=== PATIENT | female | born 1930 | race Caucasian/White ===

== ENCOUNTER → 2018-07-25 | Outpatient (CLI) | payer OTHER ==
[2018-07-25 11:54] LABS: Basophils # (auto) 0 uL; Basophils % (auto) 0.6 % (0.0-2.0); Eosinophils # (auto) 0.1 uL; Eosinophils % (auto) 0.7 % (0.0-7.0); Hematocrit 44.7 % (36.0-46.0); Lymphocytes # (auto) 1.4 uL; Lymphocytes % (auto) 19.1 % (10.0-50.0); Mean Corpuscular Hemoglobin 32.1 pg (28.0-32.0); Mean Corpuscular Hgb Conc. 33.5 g/dL (32.0-36.0); Mean Corpuscular Volume 95.8 fL (80.0-100.0); Monocytes # (auto) 0.6 uL; Monocytes % (auto) 8.2 % (0.0-12.0); Neutrophils # (auto) 5.1 uL; Neutrophils % (auto) 71.4 % (37.0-80.0); Platelet Count (auto) 266 10^3/uL (140-450); Red Blood Cells 4.67 10^6/uL (4.0-5.20); Red Cell Distribution Width 13.1 % (11.8-14.3); White Blood Cell 7.2 10^3/uL (4.4-10.8)
[2018-07-25 12:35] LABS: Albumin 4.2 g/dL (3.4-5.0); BUN/Creatinine Ratio 24.5; Calcium 9.4 mg/dL (8.5-10.1); Potassium 4.5 mmol/L (3.5-5.1); Uric Acid 3.8 mg/dL (2.6-6.0)
[2018-07-25 12:38] LABS: Total Protein 7.5 g/dL (6.4-8.2)
== END | disposition home or self-care (01) ==
LOC: LAB 11:13
PROVIDERS: ATTEND Internal Medicine
DX: I12.9 Hypertensive chronic kidney disease with stage 1 through stage 4 chronic kidney disease, or unspecified chronic kidney disease (principal); N18.3 Chronic kidney disease, stage 3 (moderate)
CPT/HCPCS: 36415; 80053; 84550; 85025

== ENCOUNTER 2019-01-05 20:25 | Emergency (ER) | payer OTHER ==
[~2019-01-05] VITALS: Ht 160 cm; Wt 61.2 kg
[2019-01-06 01:30] LABS: Basophils # (auto) 0 uL; Basophils % (auto) 0.2 % (0.0-2.0); Eosinophils # (auto) 0 uL; Eosinophils % (auto) 0.1 % (0.0-7.0); Hematocrit 44.1 % (36.0-46.0); Hemoglobin 14.9 g/dL (12.2-16.2); Lymphocytes # (auto) 0.5 uL; Lymphocytes % (auto) 3.5 % (10.0-50.0); Mean Corpuscular Hemoglobin 31.2 pg (28.0-32.0); Mean Corpuscular Hgb Conc. 33.8 g/dL (32.0-36.0); Mean Corpuscular Volume 92.5 fL (80.0-100.0); Monocytes # (auto) 0.9 uL; Neutrophils # (auto) 13.9 uL; Neutrophils % (auto) 90.2 % (37.0-80.0); Platelet Count (auto) 224 10^3/uL (140-450); Red Blood Cells 4.76 10^6/uL (4.0-5.20); White Blood Cell 15.4 10^3/uL (4.4-10.8)
[2019-01-06 01:39] LABS: Albumin 4.1 g/dL (3.4-5.0); BUN/Creatinine Ratio 35.9; Calcium 9.3 mg/dL (8.5-10.1); Potassium 4.1 mmol/L (3.5-5.1)
[2019-01-06 01:42] LABS: Bilirubin, Total 1.1 mg/dL (0.2-1.0); Total Protein 7.2 g/dL (6.4-8.2)
[2019-01-06 01:44] LABS: INR 0.98 (0.9-1.15); Partial Thromboplastin Time 28.5 sec (23.78-33.04); Prothrombin Time 10.5 sec (9.27-12.13)
[2019-01-06] MEDS ORDERED: SODIUM CHLORIDE 0.9% 1,000 ML IV ONE (03:00)
[2019-01-06 03:20] LABS: Urine Bacteria NONE SEEN /hpf (None Seen); Urine Blood Negative /uL (Negative); Urine Specific Gravity 1.022 (1.001-1.035); Urine WBC 1 /hpf (0 - 5)
[2019-01-06 05:20] VITALS: BP 130/60
== END 2019-01-06 05:11 | disposition home or self-care (01) ==
LOC: ER 20:25 → EDBD 20:25 → ER 01-06 05:11
DX: R25.1 Tremor, unspecified (principal); I10 Essential (primary) hypertension; Z90.710 Acquired absence of both cervix and uterus; Z90.89 Acquired absence of other organs; Z88.2 Allergy status to sulfonamides
CPT/HCPCS: 36415; 71045; 80053; 81001; 83605; 83880; 84484; 85025; 85610; 85730; 93005; 94761; 99284; J7030

== ENCOUNTER 2019-09-08 14:01 | Inpatient (IN) | payer OTHER ==
[~2019-09-08] VITALS: Ht 162.6 cm; Wt 63.3 kg
[2019-09-08] MEDS ORDERED: HYDROmorphone HCL 2 MG/ML VL IV ONE (14:45)
[2019-09-08] MEDS ORDERED: ONDANSETRON HCL 4 MG/2 ML VIAL IV ONE (14:45)
[2019-09-08] MEDS ORDERED: NITROGLYCERIN 0.4 MG SL TAB SL PRN (16:45)
[2019-09-08] MEDS ORDERED: MORPHINE SULF INJ 2 MG/ML SYRINGE 1ML IV PRN (16:45)
[2019-09-08] MEDS ORDERED: ONDANSETRON HCL 4 MG/2 ML VIAL IV PRN (17:00)
[2019-09-08] MEDS ORDERED: LABETALOL HCL 5 MG/ML 4ML SYRINGE IV PRN (17:00)
[2019-09-08] MEDS: HYDROmorphone HCL 2 MG/ML VL IV PRN ×2 (17:08→22:13)
--- NOTE | 2019-09-08 18:15 | NUR ---
Telemetry admit from XENIA YODER admitted to Telemetry unit after SBAR received from HILLARY perkins. Patient oriented to JADEN GRAVES RN primary RN, unit, room, bed, and unit policies regarding patient care and visiting hours. Patient now on continuous telemetry monitoring, tele box # 75 and telemetry reading on arrival to unit is NSR 85bpm. Patient placed on bedside oxygen @ 2L n/c, weighed by bedscale and encouraged to call if they need something.Bed in lowest/locked position, bed rails up x2, call light within reach. All questions and concerns addressed, patient verbalized understanding.
--- NOTE | 2019-09-08 18:45 | NUR ---
Willis catheter insertion Patient assessed and determined to be in need of willis catheter. Order obtained from MD. Patient educated on catheter and reason for insertion. All questions answered. Willis catheter 16 guage Malay inserted with clean sterile technique. Patient tolerated well.
--- NOTE | 2019-09-08 19:42 | NUR ---
RECEIVED PT FROM DAY RN POC REVIEWED
--- NOTE | 2019-09-08 20:30 | NUR ---
PTS SPOUSE CALLED INFO GIVEN AFTER PASSWORD VERIFIED, STATED THAT HE WOULD VISIT PT IN AM, INQUIRED IF ORTHO CONSULT DONE, ALL QUESTIONS AND CONCERNS ADDRESSED
[2019-09-08 22:00] VITALS: BP 140/74
[2019-09-09] MEDS: HYDROmorphone HCL 2 MG/ML VL IV PRN ×5 (02:35→22:37)
--- NOTE | 2019-09-09 02:42 | NUR ---
AWOKE C/O HIP PAIN 05/04 MEDICATED ORDERED, MRSA SWAB SENT TO LAB
[2019-09-09 05:00] VITALS: BP 156/66
--- NOTE | 2019-09-09 06:06 | NUR ---
AWOKE REPOSITIONED C/O PAIN 05/04 IN HIP MEDICATED ORDERED
[2019-09-09 06:49] LABS: Basophils # (auto) 0 uL; Basophils % (auto) 0.1 % (0.0-2.0); Eosinophils # (auto) 0 uL; Eosinophils % (auto) 0.1 % (0.0-7.0); Hematocrit 35.4 % (36.0-46.0); Hemoglobin 12.3 g/dL (12.2-16.2); Lymphocytes # (auto) 0.7 uL; Lymphocytes % (auto) 7.6 % (10.0-50.0); Mean Corpuscular Hemoglobin 32.3 pg (28.0-32.0); Mean Corpuscular Hgb Conc. 34.7 g/dL (32.0-36.0); Mean Corpuscular Volume 93.1 fL (80.0-100.0); Monocytes % (auto) 10.2 % (0.0-12.0); Neutrophils # (auto) 8.1 uL; Nucleated Red Blood Cells % 0.1 %; Platelet Count (auto) 207 10^3/uL (140-450); Red Blood Cells 3.81 10^6/uL (4.0-5.20); Red Cell Distribution Width 13.2 % (11.8-14.3); White Blood Cell 9.8 10^3/uL (4.4-10.8)
[2019-09-09 07:01] LABS: INR 1.08 (0.9-1.15); Partial Thromboplastin Time 28.5 sec (23.64-32.05)
[2019-09-09 07:06] LABS: Potassium 4.6 mmol/L (3.5-5.1)
--- NOTE | 2019-09-09 07:06 | NUR ---
REPORT GIVEN TO AM NURSE POC REVIEWED
[2019-09-09 07:09] LABS: BUN/Creatinine Ratio 32.7
--- NOTE | 2019-09-09 07:30 | NUR ---
Opening Shift Note Assumed care of patient, awake and alert. No S/S of distress/SOB, or pain. Bed in lowest and locked position with side rails up x2 and call light within reach. Instructed on POC and to call for assist PRN, will continue to monitor for changes Q1hr and PRN.
[2019-09-09 08:02] VITALS: BP 128/63
[2019-09-09 09:00] VITALS: BP 128/63
[2019-09-09] MEDS: amLODIPine BESYLATE 5 MG TAB PO SCH (10:42)
--- NOTE | 2019-09-09 12:00 | NUR ---
WOUND CARE NOTE: IN TO SEE PATIENT AT THIS TIME FOR SKIN INTEGRITY. PATIENT ADMITTED TO [facility] WITH DIAGNOSIS OF LEFT HIP FRACTURE. PATIENT HAS CURRENT ROGELIO SCORE OF 10. PATIENT IS WOUND FREE AT THIS TIME, WITH PINK, BLANCHABLE BONY PROMINENCES NOTED. OPTIFOAM GENTLE SACRAL DRESSING APPLIED TO UPPER MEDIAL SACRUM PREVENTATIVE. REPOSITIONED TO SIDE-LYING POSITION WITH TWO PILLOWS FOR PROPER ALIGNMENT. RECOMMEND: FREQUENT TURN SCHEDULE Q 2 HOURS, PRN CONDITION PERMITS, WITH PRESSURE REDISTRIBUTION USING PILLOWS/WEDGES, BID/PRN APPLICATION WITH MOISTURE BARRIER CREAM, OPTIFOAM GENTLE SACRAL DRESSING PREVENTATIVE, [place]EPHANIA FOAM BOOTS NOTED TO BILATERAL FEET/HEELS, SKIN/WOUND CARE PLAN, DIETARY CONSULT FOR LOW ROGELIO, CONTINUED MONITORING BY WOUND CARE TEAM.
[2019-09-09 13:00] VITALS: BP 127/57
[2019-09-09 15:16] LABS: Urine Bacteria NONE SEEN /hpf (None Seen); Urine Blood 2+ /uL (Negative); Urine Mucus FEW (None Seen); Urine Specific Gravity 1.024 (1.001-1.035); Urine WBC 1 /hpf (0 - 5)
--- NOTE | 2019-09-09 15:55 | NUR ---
PT TAKEN TO PRE-OP.
[2019-09-09] MEDS ORDERED: LIDOCAINE 1% (LOCAL ANESTH.) PF 5ml SDV ONE (16:23)
[2019-09-09] MEDS ORDERED: SUCCINYLCHOLINE CHLORIDE 20 MG/ML 10ML VIAL IV ONE (16:24)
[2019-09-09] MEDS ORDERED: MIDAZOLAM HCL 1MG/1ML-2 ML VIAL ONE (16:33)
[2019-09-09] MEDS ORDERED: ETOMIDATE (2MG/ML) 20ML VIAL IV ONE (16:34)
[2019-09-09] MEDS ORDERED: ROCURONIUM 10MG/ML 10ML VIAL IV ONE (16:35)
[2019-09-09] MEDS ORDERED: ceFAZolin 1GM/50ML 50 ML IV ONE (16:37)
[2019-09-09] MEDS ORDERED: fentaNYL CITRATE 100 MCG/2 ML VL ONE (16:54)
[2019-09-09] MEDS ORDERED: METOCLOPRAMIDE HCL 5MG/ml INJ 2ml VIAL ONE (16:54)
[2019-09-09] MEDS ORDERED: SODIUM CHLORIDE LOCK 10 ML ONE (16:59)
[2019-09-09] MEDS ORDERED: ePHEDrine SULFATE 50 MG/ML AMP ONE (16:59)
[2019-09-09] MEDS ORDERED: NALOXONE HCL 0.4 MG/ML VIAL IV PRN (17:15)
[2019-09-09] MEDS ORDERED: ONDANSETRON HCL 4 MG/2 ML VIAL IV PRN (17:15)
[2019-09-09] MEDS ORDERED: HYDROmorphone HCL 2 MG/ML VL IV PRN ×2 (17:15)
[2019-09-09] MEDS ORDERED: GLYCOPYRROLATE 0.2 MG/ML 1ML VIAL ONE (17:41)
[2019-09-09] MEDS ORDERED: NEOSTIGMINE 1 MG/ML INJ (10mg/10ML VIAL) ONE (17:41)
--- NOTE | 2019-09-09 19:40 | NUR ---
Patient has arrived from PACU. The patient is resting comfortably in bed and denies any pain. Patient is on 2L NC. Family is present at bedside.
[2019-09-09] MEDS: ceFAZolin 1GM/50ML 50 ML IV SCH (22:19)
[2019-09-09 22:20] VITALS: BP 137/61
[2019-09-10] MEDS: HYDROmorphone HCL 2 MG/ML VL IV PRN ×4 (00:46→19:30)
--- NOTE | 2019-09-10 03:55 | NUR ---
Patient has requested to be moved to another room. The patient has been transferred to 293B.
[2019-09-10 05:08] VITALS: BP 135/58
[2019-09-10] MEDS: ceFAZolin 1GM/50ML 50 ML IV SCH ×2 (06:32→14:14)
[2019-09-10 07:52] LABS: Hematocrit 30.1 % (36.0-46.0); Hemoglobin 10.3 g/dL (12.2-16.2)
[2019-09-10 08:05] VITALS: BP 136/61
--- NOTE | 2019-09-10 08:41 | NUR ---
CALLED DR. ORTEGA CALLED AND SPOKE TO DR. ORTEGA. RN NOTIFIED MD THAT THE PATIENTS DRESSING IS COMPLETELY COVERED IN BLOOD. PER MD, HOLD ANY LOVENOX AND CHANGE DRESSING WITH STERILE JEFF. MD AWARE. NEW ORDERS RECEIVED, READ BACK AND VERIFIED.
--- NOTE | 2019-09-10 08:53 | NUR ---
DRESSING CHANGED SURGICAL SITE DRESSING TO THE LEFT HIP AND UPPER THIGH CHANGED WITH STERILE JEFF AND TAPE TO APPLY, PER DR. ORTEGA ORDERS.
[2019-09-10 09:02] VITALS: BP 136/61
[2019-09-10] MEDS: amLODIPine BESYLATE 5 MG TAB PO SCH (10:05)
[2019-09-10] MEDS ORDERED: FELO5TAB6 PO (10:11)
--- NOTE | 2019-09-10 11:29 | NUR ---
NUTRITION CONSULT/ASSESSMENT NOTES Please refer to link notes of nutrition screen form filed under the intervention section of the plan of care for further details. Est. Needs: 1400 kcal to 1700 kcal (25-30 kcal/kgBW), 57 gms to 68 gms pro (1.0-1.2 gms/kgBW). Will continue to monitor pertinent labs and reassess nutrient need prn Thank you for this consult. Addendum: 09/10/19 at [address] Amended: Links added.
[2019-09-10 13:00] VITALS: BP 122/54
--- NOTE | 2019-09-10 16:11 | NUR ---
Assessment Pt is an 88 yr old alert and oriented female. Pt lives with , Garrison, who is her emergency contact at [phone]. Prior to admit, pt ambulated with a rolater or a cane and was independent with ADL's. Pt came to hospital for hip surgery. Pt receives income and has an AD on file. Pt's Primary is Dr. Duncan. Pt's will transport home upon d/c. Pt is pending a PT evaluation. Upon evaluation, if pt meets criteria, pt would benefit from receiving services for PT and professor of nursing upon d/c. Addendum: 09/10/19 at 1615 by JAMES BLAKE Amended: Links added.
[2019-09-10 16:51] VITALS: BP 119/48
--- NOTE | 2019-09-10 19:25 | NUR ---
REPORT GIVEN TO ANDRES RNLIZET.
--- NOTE | 2019-09-10 19:25 | NUR ---
Opening Shift Note Assumed care of patient, awake and alert. No S/S of distress/SOB. The patient complains of left hip pain. Will treat with PRN pain medication. Instructed on POC and to call for assist PRN, will continue to monitor for changes Q1hr and PRN.
[2019-09-10 21:52] VITALS: BP 126/44
[2019-09-11] VITALS (8 sets, daily range): BP systolic 94–140; BP diastolic 47–59
--- NOTE | 2019-09-11 07:20 | NUR ---
Opening Shift Note Assumed care of patient, awake and alert. No S/S of distress/SOB or pain. Instructed on POC and to call for assist PRN, will continue to monitor for changes Q1hr and PRN.
[2019-09-11 07:33] LABS: Hematocrit 28.2 % (36.0-46.0); Hemoglobin 9.8 g/dL (12.2-16.2)
[2019-09-11 08:31] LABS: Free T3 2.11 pg/mL (2.3-4.2); Free T4 (Free Thyroxine) 1.41 ng/dL (0.89-1.76)
[2019-09-11] MEDS ORDERED: LEVOTHYROXINE SODIUM 25 MCG TAB PO ONE (09:00)
[2019-09-11] MEDS: HYDROmorphone HCL 2 MG/ML VL IV PRN ×3 (09:22→18:22)
[2019-09-11] MEDS: amLODIPine BESYLATE 5 MG TAB PO SCH (09:23)
[2019-09-11] MEDS: ENOXAPARIN SOD 40 MG/0.4 ML SYRINGE SC SCH (10:31)
--- NOTE | 2019-09-11 11:00 | NUR ---
Dressing change Left hip dressing removed and replaced per orders. Wound cleaned with wound cleanser and dressed with abd pads and medi tape. Dressing clean dry and intact. Patient tolerated well.
--- NOTE | 2019-09-11 15:09 | NUR ---
D/C Planning Per consult for home health physical therapy. Order was reviewed and approved by KENRICK Holliday. Order has been approved for physical therapy evaluation with [facility]. Faxed order to manage care Fax:) at 14:17. Contact [facility] Ph:) Fax:( [phone]) faxed medical records with authorization number [id number]. Per Stevo from [facility] order has been received and service to start within 48hrs upon d/c day. Informed HILLARY Catherine. Addendum: 09/11/19 at 1515 by ADI CASANOVA Amended: Links added.
--- NOTE | 2019-09-11 19:25 | NUR ---
Opening Shift Note Received report from john Catherine RN. Assumed care of patient, awake and alert. No S/S of distress/SOB but c/o pain to left hip. Will give pain medication as ordered. Instructed on POC and to call for assist PRN, will continue to monitor for changes Q1hr and PRN. Bed placed in lowest position, bed alarm turned on and call light within reach.
--- NOTE | 2019-09-11 20:00 | NUR ---
Dressing to left hip is clean, dry and intact.
[2019-09-12] VITALS (7 sets, daily range): BP systolic 109–133; BP diastolic 43–61
[2019-09-12] MEDS: HYDROmorphone HCL 2 MG/ML VL IV PRN ×3 (03:53→14:58)
[2019-09-12 05:44] LABS: Hematocrit 26.4 % (36.0-46.0)
[2019-09-12] MEDS: LEVOTHYROXINE SODIUM 25 MCG TAB PO SCH (06:32)
--- NOTE | 2019-09-12 06:34 | NUR ---
Patient is c/o back pain. Given pain medication as ordered. Patient is alert and oriented. Repositioned patient, patient states she feels a little better after pain medication was given. Will monitor.
[2019-09-12] MEDS: amLODIPine BESYLATE 5 MG TAB PO SCH (09:32)
[2019-09-12] MEDS: ENOXAPARIN SOD 40 MG/0.4 ML SYRINGE SC SCH (09:32)
[2019-09-12] MEDS: traMADol HCL 50 MG TAB PO PRN ×2 (12:54→21:38)
--- NOTE | 2019-09-12 19:25 | NUR ---
Opening Shift Note Received report from john Catherine RN. Assumed care of patient, awake and alert. No S/S of distress/SOB or c/o pain. Patient is doing some upper extremity exercises using elastic bands. Instructed on POC and to call for assist PRN, will continue to monitor for changes Q1hr and PRN. Bed placed in lowest position, bed alarm turned on and call light within reach.
--- NOTE | 2019-09-12 21:30 | NUR ---
ENCOURAGED PATIENT TO USE THE INCENTIVE SPIROMETER AND PATIENT DEMONSTRATED WELL.
--- NOTE | 2019-09-13 03:00 | NUR ---
IV insertion IV access obtained, via clean sterile technique by inserting 22 gauge catheter at left forearm after first attempt. IV secured properly. No trauma to site. Patient tolerated well.
--- NOTE | 2019-09-13 03:00 | NUR ---
IV removal after 72 hours IV to right forearm DC'd with sterile technique, catheter fully intact. Pressure dressing applied to site. Patient tolerated procedure well.
[2019-09-13 05:00] VITALS: BP 133/58
[2019-09-13] MEDS: LEVOTHYROXINE SODIUM 25 MCG TAB PO SCH (06:33)
[2019-09-13 07:22] LABS: Basophils # (auto) 0 uL; Basophils % (auto) 0.4 % (0.0-2.0); Eosinophils # (auto) 0.3 uL; Eosinophils % (auto) 3.1 % (0.0-7.0); Hematocrit 26.2 % (36.0-46.0); Hemoglobin 9.2 g/dL (12.2-16.2); Lymphocytes % (auto) 11.8 % (10.0-50.0); Mean Corpuscular Hemoglobin 32.5 pg (28.0-32.0); Mean Corpuscular Hgb Conc. 35.2 g/dL (32.0-36.0); Mean Corpuscular Volume 92.6 fL (80.0-100.0); Monocytes # (auto) 0.9 uL; Monocytes % (auto) 10.8 % (0.0-12.0); Neutrophils # (auto) 6.4 uL; Neutrophils % (auto) 73.9 % (37.0-80.0); Platelet Count (auto) 263 10^3/uL (140-450); Red Blood Cells 2.84 10^6/uL (4.0-5.20); Red Cell Distribution Width 12.8 % (11.8-14.3); White Blood Cell 8.7 10^3/uL (4.4-10.8)
[2019-09-13 07:44] LABS: Albumin 2.3 g/dL (3.4-5.0); BUN/Creatinine Ratio 39.5; Calcium 8.5 mg/dL (8.5-10.1); Magnesium 2.3 mg/dL (1.6-2.6); Potassium 4.3 mmol/L (3.5-5.1)
[2019-09-13 07:47] LABS: Bilirubin, Total 1.7 mg/dL (0.2-1.0); Total Protein 5.7 g/dL (6.4-8.2)
--- NOTE | 2019-09-13 08:00 | NUR ---
Opening Shift Note Assumed care of patient, awake and alert. No S/S of distress/SOB, 4/10 back pain and left hip pain. High risk for fall, bed alarm on and side rails up x2. Instructed on POC and to call for assist PRN, will continue to monitor for changes Q1hr and PRN.
[2019-09-13 09:00] VITALS: BP 136/59
[2019-09-13] MEDS: amLODIPine BESYLATE 5 MG TAB PO SCH (10:51)
[2019-09-13] MEDS: ENOXAPARIN SOD 40 MG/0.4 ML SYRINGE SC SCH (10:52)
--- NOTE | 2019-09-13 11:00 | NUR ---
Dr. Wallis at bedside, discussed plan of care to the patient and patient's family.
[2019-09-13] MEDS: traMADol HCL 50 MG TAB PO PRN ×3 (12:57→21:10)
[2019-09-13 13:00] VITALS: BP 130/56
--- NOTE | 2019-09-13 15:04 | NUR ---
Nutrition Follow-up Notes Wt.: 64.6 kg as of yesterday. Pt's with PT at bedside when rounded this morning. Pt's no signs of distress noted earlier, currently on Regular diet with inadequate PO intake aeb <50% ave. consumed meals (x4) in last 2.5 days d/t pt refused, per nursing. Followed up with RN re: RD's MD's approved recommendation. Est. Needs: 1400 kcal to 1700 kcal (25-30 kcal/kgBW), 57 gms to 68 gms pro (1.0-1.2 gms/kgBW). Will continue to monitor pertinent labs and reassess nutrient need prn Labs: Na 135 L, BUN 34 H, Tot radha 1.7 H, Tpro 5.7 L, Alb 2.3 L Skin: Juan Carlos scale 17, mod risk, pt's left hip incision per vocational rehabilitation specialist. Pls refer to latest water resources program director's notes for further details re: tx plans. GI: Pt's no bowel activity since 09/08/19 per vocational rehabilitation specialist. PES: Increased nutrient needs r/t acute/chronic medical condition aeb 104% IBW, BMI 21.5 kg/m2, decreased muscle mass, closed comminuted intertrochanteric fracture of left femur, s/p surgery, refusing meals. Altered nutrition related lab values r/t current/chronic medical condition aeb elev. BUN, hypocalcemia and hyperglycemia Will continue to monitor PO intake, skin status, pertinent labs and weight trend. F/u in 3 to 5 days. Rec.: 1.) Pls enter order for Ensure Enlive 1 carton TID, already e-signed approved by . 2.) If Albumin continues trending down, consider Prostat 1 pkt BID. 3.) Consider daily MVI with minerals and Asc acid 500 mgs BID. prn. 4.) Continue close supervision and feeding assistance prn during meals. 5.) Refer pt to RD for further nutrition education and weight monitoring upon discharge. 6.) Continue current plan of care.
[2019-09-13 17:00] VITALS: BP 126/58
--- NOTE | 2019-09-13 17:03 | NUR ---
Complained of 6/10 lower back and left hip pain. Medicated with Tramadol PPO as ordered. Continue care.
[2019-09-13] MEDS: Ensure Enlive Strawberry 8oz Bottle PO SCH (18:37)
[2019-09-13 20:00] VITALS: BP 133/56
--- NOTE | 2019-09-13 20:00 | NUR ---
Opening Shift Note Assumed care of patient, awake and alert. No S/S of distress/SOB or pain. Instructed on POC and to call for assist PRN, will continue to monitor for changes Q1hr and PRN. Call light in reach and bed in low position. Dressing to left hip is clean, dry and intact.
[2019-09-13 22:00] VITALS: BP 119/42
[2019-09-14 05:24] VITALS: BP 132/51
[2019-09-14] MEDS: LEVOTHYROXINE SODIUM 25 MCG TAB PO SCH (06:28)
--- NOTE | 2019-09-14 06:52 | NUR ---
Closing note: Patient resting comfortably in bed. She states she "feels really good this morning". No distress or pain noted.
--- NOTE | 2019-09-14 07:40 | NUR ---
OPENING NOTE ASSUMED CARE OF PT. ALERT AND ORIENTED. NO S/S OF SOB/DISTRESS. PT DENIES ANY PAIN. SAFETY PRECAUTIONS IN PLACE. BED SET TO LOWEST POSITION/LOCKED, BEDSIDE RAILS UP X2, CALL LIGHT WITHIN REACH. INSTRUCTED PT TO CALL FOR ASSISTANCE. UPDATED ON POC. PT VERBALIZED UNDERSTANDING. WILL CONTINUE TO MONITOR Q1HR AND PRN.
[2019-09-14] MEDS: Ensure Enlive Strawberry 8oz Bottle PO SCH ×3 (08:00→17:56)
[2019-09-14 08:59] VITALS: BP 122/50
[2019-09-14] MEDS: amLODIPine BESYLATE 5 MG TAB PO SCH (10:23)
[2019-09-14] MEDS: ENOXAPARIN SOD 40 MG/0.4 ML SYRINGE SC SCH (10:24)
[2019-09-14 12:34] VITALS: BP 120/47
[2019-09-14] MEDS: traMADol HCL 50 MG TAB PO PRN (16:34)
[2019-09-14 17:26] VITALS: BP 124/45
[2019-09-14 20:00] VITALS: BP 128/45
[2019-09-14 22:03] VITALS: BP 128/45
[2019-09-15] MEDS: traMADol HCL 50 MG TAB PO PRN ×2 (01:27→23:17)
[2019-09-15] MEDS: HYDROmorphone HCL 2 MG/ML VL IV PRN ×3 (03:59→20:41)
[2019-09-15 05:22] VITALS: BP 131/52
[2019-09-15] MEDS: LEVOTHYROXINE SODIUM 25 MCG TAB PO SCH (06:59)
--- NOTE | 2019-09-15 07:30 | NUR ---
Opening Shift Note RECEIVED REPORT FROM NOC RN. Assumed care of patient, awake and alert. No S/S of distress/SOB or pain. BED IN LOWEST, LOCKED POSITION WITH SIDERAILS UP x2 AND CALL LIGHT WITHIN REACH. Instructed on POC and to call for assist PRN, will continue to monitor for changes Q1hr and PRN.
[2019-09-15] MEDS: Ensure Enlive Strawberry 8oz Bottle PO SCH ×3 (08:00→17:58)
[2019-09-15 09:20] VITALS: BP 115/48
[2019-09-15] MEDS: amLODIPine BESYLATE 5 MG TAB PO SCH (10:14)
[2019-09-15] MEDS: ENOXAPARIN SOD 40 MG/0.4 ML SYRINGE SC SCH (10:14)
--- NOTE | 2019-09-15 12:29 | NUR ---
DR. RODRIGUES AT BEDSIDE. NEW ORDERS RECEIVED AND CARRIED OUT.
[2019-09-15 12:49] VITALS: BP 105/47
[2019-09-15 14:19] LABS: Hematocrit 26.7 % (36.0-46.0)
[2019-09-15 17:08] VITALS: BP 111/48
--- NOTE | 2019-09-15 19:30 | NUR ---
Opening Shift Note Assumed care of patient, awake and alert x4. No S/S of distress/SOB or pain. Instructed on POC and to call for assistance PRN, will continue to monitor for changes Q1hr and PRN.
[2019-09-15 20:00] VITALS: BP 120/57
--- NOTE | 2019-09-15 20:45 | NUR ---
Pain Pt medicated for c/o 4/10 back pain, states tramadol does not work for her. Pt declined repositioning states she is comfortable like that does not want to turn for full skin assessment, educated on pressure ulcer prevention. Call light within reach, will continue to monitor, SCDs on bilaterally, Razo draining to gravity
[2019-09-15 22:00] VITALS: BP 120/57
--- NOTE | 2019-09-15 23:21 | NUR ---
Pain Pt alert x4, medicated with tramadol for c/o back pain 02/01. pt declined repositioning, sitting up semi fowlers with pillow to left side at this time. Call light within reach
[2019-09-16] MEDS: HYDROmorphone HCL 2 MG/ML VL IV PRN (02:26)
[2019-09-16 05:08] VITALS: BP 129/59
[2019-09-16] MEDS: traMADol HCL 50 MG TAB PO PRN ×2 (06:10→15:36)
[2019-09-16] MEDS: LEVOTHYROXINE SODIUM 25 MCG TAB PO SCH (06:10)
[2019-09-16 08:00] VITALS: BP 113/43
--- NOTE | 2019-09-16 08:00 | NUR ---
Opening Shift Note Assumed care of patient, awake and alert sitting up in bed. No S/S of distress/SOB or pain. [place] boots placed bilaterally. Instructed on POC and to call for assist PRN, call light within reach and bed in locked and lowest position. Will continue to monitor for changes Q1hr and PRN.
[2019-09-16] MEDS: Ensure Enlive Strawberry 8oz Bottle PO SCH ×2 (08:46→12:00)
[2019-09-16 09:00] VITALS: BP 113/43
[2019-09-16] MEDS: amLODIPine BESYLATE 5 MG TAB PO SCH (09:57)
[2019-09-16] MEDS: ENOXAPARIN SOD 40 MG/0.4 ML SYRINGE SC SCH (09:57)
--- NOTE | 2019-09-16 11:50 | NUR ---
Dr. Wallis bedside with patient and family discussing plan of care.
--- NOTE | 2019-09-16 11:57 | NUR ---
Nutrition Follow-up Notes Wt.: 63.3 kg Pt's sleeping with no family by bedside when rounded this morning. Pt's no signs of distress noted earlier, currently on Regular diet with adequate PO of 75% x 4 per RN doc along with ensure enlive 1 carton tid Est. Needs: 1400 kcal to 1700 kcal (25-30 kcal/kgBW), 57 gms to 68 gms pro (1.0-1.2 gms/kgBW). Will continue to monitor pertinent labs and reassess nutrient need prn Labs: No new labs today 09/13: Na 135 L, BUN 34 H, Tot radha 1.7 H, Tpro 5.7 L, Alb 2.3 L Skin: Juan Carlos scale 20, mod risk, pt's left hip incision per passenger tire builder. Pls refer to latest shank boner's notes for further details re: tx plans. GI: Pt's no bowel activity since 09/08/19 constipated per passenger tire builder. PES: Increased nutrient needs r/t acute/chronic medical condition aeb 104% IBW, BMI 21.5 kg/m2, decreased muscle mass, closed comminuted intertrochanteric fracture of left femur, s/p surgery, refusing meals. Altered nutrition related lab values r/t current/chronic medical condition aeb elev. BUN, hypocalcemia and hyperglycemia Will continue to monitor PO intake, skin status, pertinent labs and weight trend. F/u in 3 to 5 days. Rec.: 1.) Pls enter order for Ensure Enlive 1 carton TID, already e-signed approved by . 2.) If Albumin continues trending down, consider Prostat 1 pkt BID. 3.) Consider daily MVI with minerals and Asc acid 500 mgs BID. prn. 4.) Continue close supervision and feeding assistance prn during meals. 5.) Refer pt to RD for further nutrition education and weight monitoring upon discharge. 6.) Continue current plan of care.
[2019-09-16 13:00] VITALS: BP 127/52
--- NOTE | 2019-09-16 13:00 | NUR ---
Wound Small blisters forming on heels bilaterally. Pillow applied under legs to keep heels off bed. Educated patient and family on care of heels. Also provided patient with jody boots for home. Educated patient on proper use.
[2019-09-16 14:52] VITALS: BP 113/43
--- NOTE | 2019-09-16 15:43 | NUR ---
Discharge instructions given as ordered. Home Health set up with [facility] and to be delivered to home today. Encouraged to follow up with PMD as instructed. All questions and concerns addressed. Patient verbalized understanding. Medication reconciliation form completed and copy given to patient. Patient refused needed vaccines. IV removed with catheter intact, pressure dressing applied and willis catheter removed. Patient educated on post catheter care. Telemetry unit returned to ICU. Patient taken to vehicle via wheelchair with all personal belongings, accompanied by staff and family member. No distress noted at time of departure.
--- NOTE | 2019-09-16 15:52 | NUR ---
Telemetry unit returned to ICU. Patient taken to vehicle via wheelchair with all personal belongings, accompanied by staff and family member. No distress noted at time of departure.
--- NOTE | 2019-09-16 16:55 | NUR ---
D/C Planning Per consult for wheelchair. Order was reviewed and approved by KENRICK Holliday. Faxed order to manage care Fax:( [phone]) at 14:30. Contact Ph:( [phone]) Fax:) faxed medical records with authorization # [id number] requesting for WC do be deliver to home. Per Luis from order has been received and they are pending authorization hard copy in order to proceed with referral. Will follow up tomorrow.
== END 2019-09-16 15:52 | disposition home health service (06) | DRG 482 ==
LOC: EDBD 14:01 → ER 14:01 → TELE 14:02 → TELE-WESTW 18:16
PROVIDERS: ADMIT Nurse Practitioner Acute Care; ATTEND Internal Medicine
PROC: 0QS706Z Reposition Left Upper Femur with Intramedullary Internal Fixation Device, Open Approach (ICD-10-PCS; principal; 2019-09-08)
PROC: 0MBM0ZZ Excision of Left Hip Bursa and Ligament, Open Approach (ICD-10-PCS; 2019-09-08)
PROC: 0QU70JZ Supplement Left Upper Femur with Synthetic Substitute, Open Approach (ICD-10-PCS; 2019-09-08)
DX: M80.052A Age-related osteoporosis with current pathological fracture, left femur, initial encounter for fracture (principal); I10 Essential (primary) hypertension; M19.90 Unspecified osteoarthritis, unspecified site; M70.62 Trochanteric bursitis, left hip; I44.0 Atrioventricular block, first degree; Z96.649 Presence of unspecified artificial hip joint; Z96.651 Presence of right artificial knee joint; M54.9 Dorsalgia, unspecified; G89.29 Other chronic pain; E03.9 Hypothyroidism, unspecified; W07.XXXA Fall from chair, initial encounter; Y93.89 Activity, other specified; Z88.2 Allergy status to sulfonamides; Z90.49 Acquired absence of other specified parts of digestive tract; Z79.899 Other long term (current) drug therapy; Z90.710 Acquired absence of both cervix and uterus; Y99.8 Other external cause status; Y92.098 Other place in other non-institutional residence as the place of occurrence of the external cause
CPT/HCPCS: 36415; 71045; 72192; 73502; 76000; 80048; 80053; 81001; 82306; 83036; 83735; 84439; 84443; 84481; 85014; 85018; 85025; 85610; 85730; 86850; 86900; 86901; 87081; 93005; 93306; 96374; 96375; 97110; 97116; 97530; A4565; C1713; C1769; G0378; J0330; J0690; J2250; J2405; J3490